=== PATIENT | female | born 1970 | race American Indian/Alaskan Native ===

== ENCOUNTER 2016-11-01 14:04 | Emergency (ER) | payer SELFPAY ==
[2016-11-01 14:11] VITALS: BP 158/88; PULSE 91; RESP 19; TEMP 97.4; O2SAT 96; BMI 36.6
--- NOTE | 2016-11-01 14:22 | ED PDOC ---
Arrival/HPI - General Chief Complaint: Lower Extremity Problem/Injury Time Seen by Provider: 11/01/16 14:08 Historian: Patient - History of Present Illness Narrative History of Present Illness (Text): 11/01/16 14:15 A 46 year old female with left knee pain/swelling for the past month, which has worsened recently. Patient denies any trauma, injuries, fever, chills, or any other complaints at this time. PMD: None Time/Duration: Other (1 month) Symptom Onset: Gradual Symptom Course: Worsening Quality: Other Activities at Onset: Rest Context: Home Past Medical History - Provider Review Nursing Documentation Reviewed: Yes - Infectious Disease Hx of Infectious Diseases: None - Musculoskeletal/Rheumatological Hx Falls: No - Psychiatric Hx Substance Use: No - Surgical History Hx Section: Yes (x3) Other/Comment: eye sx on L eye as a child. fibroid tumor removed - Anesthesia Hx Anesthesia: Yes Hx Anesthesia Reactions: No Family/Social History - Physician Review Nursing Documentation Reviewed: Yes Family/Social History: Unknown Family HX Smoking Status: Light Smoker < 10 Cigarettes Daily Hx Alcohol Use: No Hx Substance Use: No Allergies/Home Meds Allergies/Adverse Reactions: Allergies No Known Allergies Allergy (Verified 11/01/16 14:11) Physical Exam - Physical Exam Narrative Physical Exam (Text): - Review of Systems Constitutional: Normal. absent: Fatigue, Weight Change, Fevers Eyes: Normal ENT: Normal Respiratory: Normal absent: SOB, Cough, Sputum Cardiovascular: Normal absent: Chest pain, Palpitations, Syncope Gastrointestinal: Normal absent: Abdominal pain, Diarrhea, Nausea, Vomiting Genitourinary: Normal. absent: Dysuria, Frequency, Hematuria Musculoskeletal: left knee pain/swelling. absent: Arthralgias, Back Pain, Neck Pain Skin: Normal Neurological: Normal absent: Focal Weakness Endocrine: Normal Hemo/Lymphatic: Normal Psychiatric: Normal - Physical exam Patient appears age appropriate, speaking full sentences without difficulty. - Systems Exam Head: Present: Atraumatic, Normocephalic Pupils: Present: PERRL Extraocular Muscles: Present: EOMI Conjunctiva: Present: Normal Mouth: Present: Moist Mucous Membranes Neck: Present: Normal Range of Motion. No: MIDLINE TENDERNESS, Paraspinal Tenderness Respiratory/Chest: Present: Clear to Auscultation, Good Air Exchange. No: Respiratory Distress, Accessory Muscle Use, Tachypneic Cardiovascular: Present: Regular Rate and Rhythm, Normal S1, S2, Peripheral Pulses Present. No: Murmurs Abdomen: Present: Normal Bowel Sounds, No: Tenderness, Peritoneal Signs, Rebound, Guarding, Distention Back: Present: Normal Inspection. No: Midline Tenderness, Paraspinal Tenderness Upper Extremity: Present: Normal Inspection. No: Cyanosis, Edema Lower Extremity: Present: Mild posterior left knee tenderness with palpation. No erythema. No warmth. Full active and passive range of motion of the bilateral knees with weight bearing. Neurological: Present: GCS=15, Speech Normal, cranial nerves II through XII fully intact with no cerebellar abnormality, neuro-sensory fully intact. No focal neurological deficits. Skin: Present: Warm, Dry, Normal Color. No: Rashes Lymphatic: Present: OX3, NI, NC Psychiatric: Present: Alert, Oriented x 3, Normal Insight, Normal Concentration Vital Signs Reviewed: Yes Vital Signs Temp Pulse Resp BP Pulse Ox 11/01/16 14:10 97.4 F L 91 H 19 158/88 H 96 Temperature: Afebrile Blood Pressure: Hypotensive Pulse: Regular Respiratory Rate: Normal Appearance: Positive for: Well-Appearing, Non-Toxic, Comfortable Pain Distress: None Mental Status: Positive for: Alert and Oriented X 3 Medical Decision Making ED Course and Treatment: 11/01/16 14:15 Impression: A 46 year old female with left knee pain/swelling. Physical examination reveals mild tenderness to the posterior left knee but no warmth or erythema. Differential Diagnosis include but are not limited to: Gout vs. arthritis vs. Bursitis vs. popliteal cyst vs. DVT Plan: -- Left knee X-ray -- Lower extremity Duplex -- Toradol -- Reassess and disposition Progress Notes: 11/01/16 15:41 Left knee X-ray: As read by me. Impression: no acute fracture or dislocation. 11/01/16 16:17 dw Gelato Fiasco, states DVT neg. for DVT, Bakers cyst present pt ambulates without assistance instructed to f/u with marketing content specialist for further w/u Pt states she understands to return to the ER right away for new or worsening symptoms or for inability to f/u with PMD or specialist as instructed. Patient states that she fully agrees with and understands discharge instructions. States that she agrees with the plan and disposition. Verbalized and repeated discharge instructions and plan. I have given the patient opportunity to ask any additional questions. - RAD Interpretation Radiology Orders: 11/01/16 14:30 KNEE LEFT 2 VIEWS (AP & LAT) [RAD] Stat 11/01/16 14:31 DUPLEX LOWER EXTRM VEIN LEFT [US] Stat - Medication Orders Current Medication Orders: Discontinued Medications Ketorolac Tromethamine (Toradol) 30 mg IM STAT STA Stop: 11/01/16 14:31 Last Admin: 11/01/16 14:35 Dose: 30 mg - Scribe Statement The provider has reviewed the documentation as recorded by the Luisibe Caryn Ramirez Provider Scribe Attestation: All medical record entries made by the Scribe were at my direction and personally dictated by me. I have reviewed the chart and agree that the record accurately reflects my personal performance of the history, physical exam, medical decision making, and the department course for this patient. I have also personally directed, reviewed, and agree with the discharge instructions and disposition. Disposition/Present on Arrival - Present on Arrival Any Indicators Present on Arrival: No History of DVT/PE: No History of Uncontrolled Diabetes: No Urinary Catheter: No History of Decub. Ulcer: No History Surgical Site Infection Following: None - Disposition Have Diagnosis and Disposition been Completed?: Yes Diagnosis: Knee pain Disposition: HOME/ ROUTINE Disposition Time: 16:22 Patient Plan: Discharge Condition: GOOD Discharge Instructions (ExitCare): Arthralgia (ED), Knee Pain (ED), Elizondo's Cyst (ED) Additional Instructions: PLEASE RETURN TO THE EMERGENCY DEPARTMENT FOR NEW OR WORSENING SYMPTOMS. RETURN RIGHT AWAY IF YOU CANNOT FOLLOW UP WITH YOUR PRIMARY CARE DOCTOR, CLINIC, OR SPECIALIST IN 1-2 DAYS. Prescriptions: Ibuprofen [Motrin] 600 mg PO Q8 PRN #12 tab PRN Reason: Pain, Moderate (4-7) Referrals: PCP,NO [Primary Care Provider] - Follow up with primary Nilo Chacon DO [Staff Provider] - Follow up with primary Souleymane Martinez III, MD [Medical Doctor] - Follow up with primary Forms: WORK NOTE
--- NOTE | 2016-11-01 15:43 | RAD ---
PROCEDURE: Left Knee Radiographs. HISTORY: Pain. COMPARISON: None. FINDINGS: BONES: Normal. No fracture. JOINTS: Normal. No osteoarthritis. JOINT EFFUSION: Small effusion OTHER FINDINGS: None. IMPRESSION: Normal radiographs of the left knee.
--- NOTE | 2016-11-01 20:43 | US ---
PROCEDURE: Left lower extremity venous US HISTORY: Leg pain and swelling. Evaluate for DVT. PHYSICIAN(S): Leonardo Reeder MD. TECHNIQUE: Duplex sonography and color-flow Doppler with graded compression were used to evaluate the deep venous system of the left lower extremity. FINDINGS: The visualized deep venous system of the left lower extremity is sonographically normal and compressible. Normal wave forms and augmentation are seen. There is no sonographic evidence for deep venous thrombosis in the visualized segments of the left lower extremity. There is a large complex 6.1 x 8.4 cm fluid collection in the left popliteal fossa, consistent with a Elizondo's cyst. IMPRESSION: 1. No sonographic evidence for deep venous thrombosis in the visualized segments of the left lower extremity.
== END 2016-11-01 16:34 | disposition home or self-care (01) ==
LOC: ED 14:04
DX: M25.562 Pain in left knee (principal)
CPT/HCPCS: 73560; 93971; 96372; 99284; J1885

== ENCOUNTER 2016-11-05 13:49 | Emergency (ER) | payer SELFPAY ==
[2016-11-05 13:58] VITALS: TEMP 98.6; O2SAT 99; BMI 35.4
--- NOTE | 2016-11-05 14:31 | ED PDOC ---
Arrival/HPI - General Time Seen by Provider: 11/05/16 13:59 Historian: Patient - History of Present Illness Narrative History of Present Illness (Text): 11/05/16 14:27 A 46 year old female presents to the emergency department complaining of left knee pain and swelling for the past few months. Patient takes Motrin, with improvement. She reports she has a Elizondo's cyst behind her left knee and is requesting for it to be drained. Patient denies any fever, chills, nausea, vomiting, diarrhea, abdominal pain, chest pain, shortness of breath, cough, or any other complaints. Time/Duration: Other (past month) Symptom Course: Worsening Quality: Other Context: Home Past Medical History - Provider Review Nursing Documentation Reviewed: Yes - Infectious Disease Hx of Infectious Diseases: None - Musculoskeletal/Rheumatological Hx Falls: No - Psychiatric Hx Substance Use: No - Surgical History Hx Section: Yes (x3) Other/Comment: eye sx on L eye as a child. fibroid tumor removed - Anesthesia Hx Anesthesia: Yes Hx Anesthesia Reactions: No Family/Social History - Physician Review Nursing Documentation Reviewed: Yes Family/Social History: No Known Family HX Smoking Status: Light Smoker < 10 Cigarettes Daily Hx Alcohol Use: No Hx Substance Use: No Allergies/Home Meds Allergies/Adverse Reactions: Allergies No Known Allergies Allergy (Verified 11/01/16 14:11) Review of Systems - Physician Review All systems were reviewed & negative as marked: Yes - Review of Systems Constitutional: absent: Fevers, Night Sweats Respiratory: absent: SOB, Cough Cardiovascular: absent: Chest Pain Gastrointestinal: absent: Abdominal Pain, Diarrhea, Nausea, Vomiting Musculoskeletal: Other (Left knee pain and swelling, Elizondo's cyst behind left knee) Physical Exam Vital Signs Reviewed: Yes Vital Signs Temp Pulse Resp BP Pulse Ox 11/05/16 13:58 98.6 F 83 18 173/77 H 99 Temperature: Afebrile Blood Pressure: Hypertensive Pulse: Regular Respiratory Rate: Normal Appearance: Positive for: Well-Appearing, Non-Toxic, Comfortable Pain Distress: None Mental Status: Positive for: Alert and Oriented X 3 - Systems Exam Head: Present: Atraumatic, Normocephalic Pupils: Present: PERRL Extroacular Muscles: Present: EOMI Conjunctiva: Present: Normal Lower Extremity: Present: NORMAL PULSES, Normal ROM, Tenderness (Mild tenderness in left knee with movment), Neurovascularly Intact, Other (Left knee effusion). No: Edema, CALF TENDERNESS, Erythema, Temperature Abnormalties Neurological: Present: GCS=15, Speech Normal Skin: Present: Warm, Dry, Normal Color. No: Rashes Psychiatric: Present: Alert, Oriented x 3, Normal Insight, Normal Concentration Medical Decision Making ED Course and Treatment: 11/05/16 14:47 Patient was seen in the emergency room 4 days ago for same compliant and instructed to follow up with an orthopedist. She reports she has not followed up since she will not have insurance until next month. Patient is requesting for her Elizondo's cyst to be drained. Offered joint aspiration of knee effusion, however, patient refused. Patient refusing pain medication. Advised patient to follow up with orthopedist. - Scribe Statement The provider has reviewed the documentation as recorded by the Scribe Dania Echeverria Provider Scribe Attestation: All medical record entries made by the Scribe were at my direction and personally dictated by me. I have reviewed the chart and agree that the record accurately reflects my personal performance of the history, physical exam, medical decision making, and the department course for this patient. I have also personally directed, reviewed, and agree with the discharge instructions and disposition. Disposition/Present on Arrival - Present on Arrival Any Indicators Present on Arrival: No History of DVT/PE: No History of Uncontrolled Diabetes: No Urinary Catheter: No History Surgical Site Infection Following: None - Disposition Have Diagnosis and Disposition been Completed?: Yes Diagnosis: Knee pain Disposition: HOME/ ROUTINE Disposition Time: 14:47 Patient Problems: Current Active Problems Problem Status Onset Knee pain Acute Condition: GOOD Discharge Instructions (ExitCare): Swollen Knee Joint (ED) Additional Instructions: Please follow up with the endoscopy support specialist as soon as possible. Return to the ER for any worsening symptoms, fever, or for any other concerns. Referrals: Souleymane Martinez III, MD [Medical Doctor] - Follow up with primary PCP,NO [Primary Care Provider] - Follow up with primary
[2016-11-05 15:50] VITALS: BP 152/73; PULSE 80; RESP 16
== END 2016-11-05 15:01 | disposition home or self-care (01) ==
LOC: ED 13:49
DX: M25.562 Pain in left knee (principal)

== ENCOUNTER 2016-12-21 12:15 | Emergency (ER) | payer OTHER ==
[2016-12-21 12:15] VITALS: BMI 35.4
[2016-12-21 12:30] VITALS: TEMP 98.2
--- NOTE | 2016-12-21 13:34 | RAD ---
PROCEDURE: Left Wrist Radiographs. HISTORY: pain COMPARISON: None. FINDINGS: BONES: Normal. No fracture. JOINTS: Normal. No dislocation. SOFT TISSUES: Normal. OTHER FINDINGS: None. IMPRESSION: Normal left wrist radiographs.
--- NOTE | 2016-12-21 13:43 | ED PDOC ---
Arrival/HPI - General Chief Complaint: Finger,Hand,&Wrist Time Seen by Provider: 12/21/16 12:56 Historian: Patient - History of Present Illness Narrative History of Present Illness (Text): 12/21/16 46 yo female w/PMHx of OA, HTN (non-compliant with medication) come in for evaluation of Left wrist pain, swelling gradually developed for past week. Pt describes pain as aching, localized over dorsal aspect Right hand and wrist and associated with mild swelling, worse with Right wrist flexion. Pt denies known trauma or injury, fever, chills, headache, dizziness, neck pain, CP, SOB, dyspnea, diaphoresis, palpitation, cough, wheezing, denies weakness, sensory or vascular deficits to Left hand. Pt admits, takes Ibuprofen at home with mild improvement in pain. Ambulate to Ed for evaluation, not in any apparent distress. Past Medical History - Provider Review Nursing Documentation Reviewed: Yes - Travel History Have you recently traveled outside [place] w/in the past 3 mons?: No - Infectious Disease Hx of Infectious Diseases: None - Cardiac Hx Cardiac Disorders: No - Pulmonary Hx Respiratory Disorders: No - Neurological Hx Neurological Disorder: No - HEENT Hx HEENT Disorder: No - Renal Hx Renal Disorder: No - Endocrine/Metabolic Hx Endocrine Disorders: No - Hematological/Oncological Hx Anemia: Yes - Integumentary Hx Dermatological Disorder: No - Musculoskeletal/Rheumatological Hx Falls: No - Gastrointestinal Hx Gastrointestinal Disorders: No - Genitourinary/Gynecological Hx Genitourinary Disorders: No - Psychiatric Hx Psychophysiologic Disorder: No Hx Substance Use: No - Surgical History Hx Section: Yes (x3) Other/Comment: eye sx on L eye as a child. fibroid tumor removed - Anesthesia Hx Anesthesia: Yes Hx Anesthesia Reactions: No Family/Social History - Physician Review Nursing Documentation Reviewed: Yes Family/Social History: No Known Family HX Smoking Status: Light Smoker < 10 Cigarettes Daily Hx Alcohol Use: No Hx Substance Use: No Allergies/Home Meds Allergies/Adverse Reactions: Allergies No Known Allergies Allergy (Verified 11/01/16 14:11) Review of Systems - Review of Systems Constitutional: Normal Eyes: Normal. absent: Vision Changes ENT: Normal Respiratory: Normal Cardiovascular: Normal. absent: Chest Pain, Palpitations, Edema, Calf Pain, WALTERS , Orthopnea Gastrointestinal: Normal Genitourinary Female: Normal Musculoskeletal: Arthralgias, Joint Swelling Skin: Normal. absent: Rash Neurological: Normal. absent: Headache, Dizziness, Focal Weakness Endocrine: Normal Hemo/Lymphatic: Normal Psychiatric: Normal Physical Exam Vital Signs Reviewed: Yes Vital Signs Temp Pulse Resp BP Pulse Ox 12/21/16 12:15 98.2 F 75 18 184/97 H 98 Temperature: Afebrile Blood Pressure: Hypertensive (compare w/previous visit to ED and appears similar.) Pulse: Regular Respiratory Rate: Normal Appearance: Positive for: Well-Appearing, Non-Toxic, Comfortable Pain Distress: Mild Mental Status: Positive for: Alert and Oriented X 3 - Systems Exam Conjunctiva: Present: Normal Neck: Present: Trachea Midline. No: JVD, Bruit Respiratory/Chest: Present: Clear to Auscultation, Good Air Exchange. No: Respiratory Distress Cardiovascular: Present: Regular Rate and Rhythm, Normal S1, S2. No: Murmurs, Irregular Rhythm Back: No: CVA Tenderness Upper Extremity: Present: Normal ROM (mild discomfort to Right wrist flexion due to pain.), NORMAL PULSES, Tenderness (Left wrist/hand: tenderness ovger dorsal<palmar aspect extend down to dorsal asepct hand with mild dorsal edema. NO palpable deformity. No neurovascular deficits to Right hand.), Neurovascularly Intact, Capillary Refill < 2s. No: Erythema, Deformity Lower Extremity: Present: NORMAL PULSES, Normal ROM. No: Swelling, Deformity Neurological: Present: GCS=15, Speech Normal, Motor Func Grossly Intact, Normal Sensory Function Skin: Present: Warm, Dry, Normal Color. No: Rashes Medical Decision Making ED Course and Treatment: 12/21/16 On re-eavluation, pt is afebrile, hemodynamicaly stable. non-toxic. AMbulatoyr in Ed with stable gait. Pt debies ehadache, dizziness, neck apin, CP, SOB, dyspnea, N/V. Neck: Supple, (-) JVD, (-) carotid bruits Lungs: CTA B/L, BS equal B/L CVS: (+)S1S2, reg. LUE: exam c/w wrist arthralgia with mild joint edema. NO erythema or deformity, no neurovascular deficits. Xray review and appears normal. HTN noted on triage and compare to previous visit to ED for past year, appears similar in numbers. Pt denies use of any HTN medication. Volar wrist splint applied to Left wrist. Pt advised to Fu with PMD, Ortho in 2-3 days for re-evaluation and further tx of HTN and Left wrist arthralgia/arthritis. Return to ED at any time if any worsening or new changes. Pt understand and agrees with discharges. - RAD Interpretation Radiology Orders: 12/21/16 12:56 WRIST, LEFT 3 VIEWS [RAD] Stat IMPRESSION: Normal left wrist radiographs. Quality Control Technician: Radiologist - Medication Orders Current Medication Orders: Discontinued Medications Tramadol HCl (Ultram) 50 mg PO STAT STA Stop: 12/21/16 12:57 Last Admin: 12/21/16 13:23 Dose: 50 mg Disposition/Present on Arrival - Present on Arrival Any Indicators Present on Arrival: No History of DVT/PE: No History of Uncontrolled Diabetes: No Urinary Catheter: No History of Decub. Ulcer: No History Surgical Site Infection Following: None - Disposition Have Diagnosis and Disposition been Completed?: Yes Diagnosis: Wrist arthralgia, Hypertension Disposition: HOME/ ROUTINE Disposition Time: 13:40 Patient Plan: Discharge Patient Problems: Current Active Problems Problem Status Onset Wrist arthralgia Acute Hypertension Acute Condition: STABLE Discharge Instructions (ExitCare): Hypertension (ED), Arthralgia (ED), Wrist Sprain (ED) Additional Instructions: SPLINT FOR 1 WEEK LIGHT DUTY TO LEFT WRIST FOR 1-2 WEEKS TAKE MEDICATION PRESCRIBED FOLLOW UP WITH PMD, ORTHOPEDIST IN 2-3 DAYS FOR RE-EVALUATION. RETURN TO ED IF ANY WORSENING OR NEW CHANGES. Prescriptions: Lisinopril [Prinivil] 5 mg PO DAILY #20 tablet Referrals: [facility] [place] [Outside] - Follow up with primary [facility] [place] [Outside] - Follow up with primary Debbie Munguia MD [Staff Provider] - Follow up with primary Forms: [employer] (Upper Sorbian)
[2016-12-21 14:25] VITALS: BP 166/90; PULSE 72; RESP 16; O2SAT 99
== END 2016-12-21 14:25 | disposition home or self-care (01) ==
LOC: ED 12:15
DX: M25.532 Pain in left wrist (principal); I10 Essential (primary) hypertension; F17.210 Nicotine dependence, cigarettes, uncomplicated